=== PATIENT | male | born 1945 | race Two or more races ===

== ENCOUNTER 2023-02-28 22:15 | Inpatient (IN) | payer MEDICAID, SELFPAY ==
[~2023-02-28] VITALS: Ht 152.4 cm; Wt 53.9 kg
[~2023-02-28 22:15] MED LIST: NO HOME MEDS
[2023-02-28 23:29] LABS: BASOPHILS % (AUTO) 0.7 % (0-1); EOSINOPHILS % (AUTO) 0.1 % (0-6); HEMATOCRIT 45.2 % (42.0-52.0); HEMOGLOBIN 15.8 g/dl (14.0-17.9); LYMPHOCYTES # (AUTO) 1.1 X10'3 (1.1-4.8); LYMPHOCYTES % (AUTO) 15.2 % (21-51); MEAN CORPUSCULAR HEMOGLOBIN 31.7 PG (27.0-31.0); MEAN CORPUSCULAR VOLUME 90.5 FL (78-98); MONOCYTES # (AUTO) 0.5 X10'3 (0-0.9); MONOCYTES % (AUTO) 7.7 % (2-12); NEUTROPHILS # (AUTO) 5.4 X10'3 (1.8-7.7); NEUTROPHILS % (AUTO) 76.3 % (42-75); PLATELET COUNT 204 X10'3 (140-440); RED BLOOD COUNT 4.99 X10'6 (4.70-6.10); RED CELL DISTRIBUTION WIDTH 12.9 % (11.5-14.5); WHITE BLOOD COUNT 7.1 X10'3 (4.5-11.0)
[2023-02-28 23:38] LABS: ALANINE AMINOTRANSFERASE 50 U/L (12-78); ALBUMIN 3.4 G/DL (3.4-5.0); ALBUMIN/GLOBULIN RATIO 0.8 (1.1-1.5); ALKALINE PHOSPHATASE 76 IU/L (46-116); ANION GAP 6 (8-16); ASPARTATE AMINO TRANSFERASE 37 U/L (10-37); BILIRUBIN,TOTAL 1.5 MG/DL (0.1-1.0); BLOOD UREA NITROGEN 16 MG/DL (7-18); BUN/CREATININE RATIO 16.8 (10.0-20.0); CALCIUM 9.2 MG/DL (8.5-10.1); CHLORIDE 100 MMOL/L (99-107); CREATININE 0.95 MG/DL (0.60-1.10); GLUCOSE 151 MG/DL (70-104); POTASSIUM 3.3 MMOL/L (3.5-5.1); SODIUM 136 MMOL/L (135-145); TOTAL CARBON DIOXIDE 29.6 MMOL/L (24-32); TOTAL PROTEIN 7.7 G/DL (6.4-8.2); eCRCL 45 ML/MIN; eGFR 77 ML/MIN
[2023-02-28 23:46] LABS: PRO BRAIN NATRIURETIC PEPTIDE 1264 PG/ML (0-450)
[2023-03-01] VITALS (7 sets, daily range): BP systolic 135–162; BP diastolic 74–89; PULSE 69–83; RESP 15–16; TEMP 97.3–98.4; O2SAT 95–98
[2023-03-01 00:33] LABS: BILIRUBIN,URINE SMALL (Neg); CLARITY,URINE SLIGHTLY CLOUDY (Clear); COLOR,URINE YELLOW (Yellow); GLUCOSE, URINE NEGATIVE (Neg); KETONES,URINE NEGATIVE (Neg); LEUKOCYTE ESTERASE ,URINE NEGATIVE (Neg); NITRITES, URINE NEGATIVE (Neg); OCCULT BLOOD,URINE TRACE-INTACT (Neg); PROTEIN,URINE NEGATIVE (Neg)
[2023-03-01] MEDS ORDERED: normal saline 1000ML IV soln IVB ONE (00:35)
[2023-03-01] MEDS ORDERED: iohexol 300mg/ml 100ml inj. ONE (00:40)
[2023-03-01 00:55] LABS: UA COLLECTION TYPE CLN CATCH MIDSTREAM
[2023-03-01 00:56] LABS: MUCUS STRANDS MANY /LPF (Neg); SQUAMOUS EPITHELIAL CELL,UR FEW /LPF (FEW); WBC,URINE 0-4 /HPF (0-4)
[2023-03-01 00:57] LABS: BACTERIA,URINE 1+ /HPF (Neg); RBC,URINE 0-2 /HPF (0-2)
[2023-03-01] MEDS ORDERED: ondansetron/PF 4mg/2ml inj IV PRN (04:05)
[2023-03-01] MEDS ORDERED: magnesium hydroxide 30ml (MOM) UD suspension PO PRN (04:05)
[2023-03-01] MEDS ORDERED: acetaminophen 325mg tablet PO PRN ×2 (04:05)
[2023-03-01] MEDS ORDERED: mag hydrox/Alum hydrox/simeth 30ml oral suspension PO PRN (04:05)
[2023-03-01] MEDS ORDERED: morphine 2 MG/ML inj. syringe IV PRN ×2 (04:05)
[2023-03-01 04:44] LABS: ABG BASE EXCESS 3.1 mmol/L (-2.0-2.0); ABG OXYGEN SATURATION 95.5 % (94-97); ABG PCO2 (T) 35.2 mmHg (35.0-48.0); ABG PH (T) 7.487 (7.340-7.440); ABG PO2 (T) 79.6 mmHg (75.0-100.0); ALLEN'S TEST Modified; FHHb 4.4 % (0.0-5.0); FMetHb 0.3 % (0.0-1.5); FO2Hb 94.3 % (94-97); MODE RA; PATIENT TEMPERATURE 37.3; TOTAL HEMOGLOBIN 15.3 G/dl (14.0-17.9)
[2023-03-01 04:57] LABS: THYROID STIMULATING HORMONE 5.58 ulU/ml (0.34-4.50)
[2023-03-01] MEDS: dextrose 5%-1/2 normal saline 1,000 ML IV SCH ×2 (05:38→17:35)
[2023-03-01] MEDS ORDERED: ketorolac tromethamine 15mg/ml inj. IV PRN (06:30)
--- NOTE | 2023-03-01 06:40 | NUR ---
called ortho to give hand off report. nurse busy, will call back.
--- NOTE | 2023-03-01 07:29 | NUR ---
Patient in room ORTHO 4021. I have received report from kei in ed and had the opportunity to ask questions and assume patient care.
[2023-03-01] MEDS ORDERED: PERFLUTREN PROTEIN-A MICROSPHR (Optison) 0.22 MG/ML 3ML VIAL IV ONE (07:45)
[2023-03-01 08:44] LABS: BASOPHILS # (AUTO) 0.1 X10'3 (0-0.2); BASOPHILS % (AUTO) 1.2 % (0-1); EOSINOPHILS % (AUTO) 0.4 % (0-6); HEMATOCRIT 40.7 % (42.0-52.0); LYMPHOCYTES # (AUTO) 1.7 X10'3 (1.1-4.8); LYMPHOCYTES % (AUTO) 34.3 % (21-51); MEAN CORPUSCULAR HEMOGLOBIN 31.2 PG (27.0-31.0); MEAN CORPUSCULAR HGB CONC 34.4 g/dL (33.0-36.5); MEAN CORPUSCULAR VOLUME 90.9 FL (78-98); MEAN PLATELET VOLUME 7.9 FL (7.4-10.4); MONOCYTES # (AUTO) 0.7 X10'3 (0-0.9); MONOCYTES % (AUTO) 13.9 % (2-12); NEUTROPHILS # (AUTO) 2.5 X10'3 (1.8-7.7); NEUTROPHILS % (AUTO) 50.2 % (42-75); PLATELET COUNT 184 X10'3 (140-440); RED BLOOD COUNT 4.48 X10'6 (4.70-6.10); RED CELL DISTRIBUTION WIDTH 13.1 % (11.5-14.5)
[2023-03-01 09:13] LABS: ALANINE AMINOTRANSFERASE 49 U/L (12-78); ALBUMIN 2.9 G/DL (3.4-5.0); ALBUMIN/GLOBULIN RATIO 0.8 (1.1-1.5); ALKALINE PHOSPHATASE 65 IU/L (46-116); ANION GAP 8 (8-16); ASPARTATE AMINO TRANSFERASE 29 U/L (10-37); BILIRUBIN,TOTAL 1.3 MG/DL (0.1-1.0); BLOOD UREA NITROGEN 15 MG/DL (7-18); BUN/CREATININE RATIO 16.1 (10.0-20.0); CALCIUM 8.6 MG/DL (8.5-10.1); CHLORIDE 102 MMOL/L (99-107); CREATININE 0.93 MG/DL (0.60-1.10); GLUCOSE 105 MG/DL (70-104); POTASSIUM 3.1 MMOL/L (3.5-5.1); SODIUM 139 MMOL/L (135-145); TOTAL CARBON DIOXIDE 29.2 MMOL/L (24-32); TOTAL PROTEIN 6.7 G/DL (6.4-8.2); eCRCL 46 ML/MIN; eGFR 79 ML/MIN
[2023-03-01] MEDS: docusate sod 100mg capsule PO SCH ×2 (10:49→20:43)
[2023-03-01] MEDS: enoxaparin 40mg/0.4ml syringe SUBCUT SCH (10:50)
[2023-03-01] MEDS ORDERED: potassium Cl 40MEQ/1/2NS 520ml 520 ML IV PRN (11:35)
[2023-03-01] MEDS ORDERED: magnesium 2GM in 50ml NS 50 ML IV PRN (11:35)
[2023-03-01] MEDS ORDERED: potassium Cl 20 mEq SR tablet PO PRN ×2 (11:35)
[2023-03-01] MEDS ORDERED: magnesium Cl slow-release 64mg tablet PO PRN (11:35)
[2023-03-01] MEDS ORDERED: magnesium 4gm in 100ml NS 100 ML IV PRN (11:35)
[2023-03-01] MEDS: POTASSIUM BICARB 20meq eff tab 20 MEQ TABLET.EFF PO PRN ×3 (12:33→23:13)
[2023-03-01 13:35] LABS: MAGNESIUM 2.2 MG/DL (1.5-2.4)
[2023-03-01] MEDS ORDERED: UNABLE TO OBTAIN (16:10)
[2023-03-01] MEDS ORDERED: HYDROcodone/acetaminophen 10/325mg tab PO PRN (18:30)
[2023-03-01] MEDS ORDERED: HYDROcodone/acetaminophen 5mg/325mg tablet PO PRN (18:30)
--- NOTE | 2023-03-01 19:00 | NUR ---
Patient in room ORTHO 4021. I have received report from RICARDO Nunez and had the opportunity to ask questions and assume patient care.
--- NOTE | 2023-03-01 19:08 | NUR ---
Problems reprioritized. Patient report given, questions answered & plan of care reviewed with madahv bah.
[2023-03-01] MEDS: K and/or MAG REPLACEMENT MC SCH (20:00)
[2023-03-01] MEDS: carVEDilol 3.125mg tablet PO SCH (20:42)
[2023-03-01] MEDS ORDERED: tamsulosin 0.4mg capsule PO SCH (21:00)
[2023-03-01] MEDS ORDERED: mirtazapine 15mg tablet PO SCH (21:00)
[2023-03-02 04:27] VITALS: BP_SYST 142; BP_SYST 152; BP_SYST 162; BP_DIAS 78; BP_DIAS 80; BP_DIAS 89; PULSE 70; PULSE 76; PULSE 83
[2023-03-02 06:00] VITALS: BP 158/83; PULSE 82; RESP 16; TEMP 98.4; O2SAT 97
--- NOTE | 2023-03-02 06:30 | NUR ---
Patient in room ORTHO 4021. I have received report from Iqra Smith and had the opportunity to ask questions and assume patient care.
--- NOTE | 2023-03-02 06:36 | NUR ---
Problems reprioritized. Patient report given, questions answered & plan of care reviewed with RICARDO Beltran.
[2023-03-02 07:24] LABS: BASOPHILS # (AUTO) 0.1 X10'3 (0-0.2); BASOPHILS % (AUTO) 1.1 % (0-1); EOSINOPHILS # (AUTO) 0.1 X10'3 (0-0.9); EOSINOPHILS % (AUTO) 1.7 % (0-6); HEMATOCRIT 40.7 % (42.0-52.0); HEMOGLOBIN 14.1 g/dl (14.0-17.9); LYMPHOCYTES # (AUTO) 2.3 X10'3 (1.1-4.8); LYMPHOCYTES % (AUTO) 40.8 % (21-51); MEAN CORPUSCULAR HEMOGLOBIN 31.7 PG (27.0-31.0); MEAN CORPUSCULAR HGB CONC 34.8 g/dL (33.0-36.5); MEAN PLATELET VOLUME 8.6 FL (7.4-10.4); MONOCYTES # (AUTO) 0.6 X10'3 (0-0.9); MONOCYTES % (AUTO) 9.9 % (2-12); NEUTROPHILS # (AUTO) 2.7 X10'3 (1.8-7.7); NEUTROPHILS % (AUTO) 46.5 % (42-75); PLATELET COUNT 186 X10'3 (140-440); RED BLOOD COUNT 4.47 X10'6 (4.70-6.10); WHITE BLOOD COUNT 5.8 X10'3 (4.5-11.0)
[2023-03-02 07:54] LABS: ALANINE AMINOTRANSFERASE 54 U/L (12-78); ALBUMIN 2.7 G/DL (3.4-5.0); ALBUMIN/GLOBULIN RATIO 0.7 (1.1-1.5); ALKALINE PHOSPHATASE 62 IU/L (46-116); ANION GAP 3 (8-16); BILIRUBIN,TOTAL 1.2 MG/DL (0.1-1.0); BLOOD UREA NITROGEN 18 MG/DL (7-18); BUN/CREATININE RATIO 21.4 (10.0-20.0); CALCIUM 8.5 MG/DL (8.5-10.1); CHLORIDE 105 MMOL/L (99-107); CREATININE 0.84 MG/DL (0.60-1.10); GLUCOSE 93 MG/DL (70-104); MAGNESIUM 2.1 MG/DL (1.5-2.4); SODIUM 138 MMOL/L (135-145); TOTAL CARBON DIOXIDE 30.5 MMOL/L (24-32); TOTAL PROTEIN 6.5 G/DL (6.4-8.2); eCRCL 51 ML/MIN; eGFR 88 ML/MIN
[2023-03-02] MEDS ORDERED: losartan 25mg tablet PO SCH (08:00)
[2023-03-02] MEDS: K and/or MAG REPLACEMENT MC SCH (08:00)
[2023-03-02 08:11] LABS: ASPARTATE AMINO TRANSFERASE 46 U/L (10-37)
[2023-03-02 08:55] VITALS: BP_SYST 140; BP_SYST 145; BP_SYST 147; BP_DIAS 70; BP_DIAS 85; BP_DIAS 86; PULSE 87; PULSE 89; PULSE 98
[2023-03-02 08:56] VITALS: RESP 16; O2SAT 97
[2023-03-02] MEDS: carVEDilol 3.125mg tablet PO SCH (08:56)
[2023-03-02] MEDS: enoxaparin 40mg/0.4ml syringe SUBCUT SCH (08:57)
[2023-03-02] MEDS: docusate sod 100mg capsule PO SCH (08:57)
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
--- NOTE | 2023-03-02 10:25 | NUR ---
Patient's daughter is at bedside - utilized the [employer] conference interpreter system to communicate with patient and daughter regarding plan of care and patient's needs. Scott #[id number] with Tavia Patient's daughter Ling . Mohawk speaking only
[2023-03-02 11:00] VITALS: BP 140/70; PULSE 87; RESP 14; TEMP 97.2; O2SAT 95
[2023-03-02] MEDS ORDERED: tamsulosin capsule PO (12:03)
[2023-03-02] MEDS ORDERED: COR3.125T PO (12:03)
[2023-03-02] MEDS ORDERED: LOSA25TA41 PO (12:03)
[2023-03-02] MEDS ORDERED: MIRT-87 PO (12:03)
--- NOTE | 2023-03-02 15:38 | NUR ---
Reviewed discharge instructions with patient and patient's daughter Nan. This daughter does speak Upper Sorbian and we were able to complete the discharge review. Patient's daughter will drive the patient home as he will be staying with her. Patient was wheeled downstairs by staff to be driven home by the daughter. All of patient's belongings were gathered by the patient's daughter.
== END 2023-03-02 15:35 | disposition home or self-care (01) | DRG 115 ==
LOC: ER 22:16 → ED HOLD 03-01 04:06 → ORTHO 4S 03-01 07:17
PROVIDERS: ADMIT Internal Medicine; ATTEND Family Medicine
PROC: BW251ZZ Computerized Tomography (CT Scan) of Chest, Abdomen and Pelvis using Low Osmolar Contrast (ICD-10-PCS; principal; 2023-03-01)
DX: S09.90XA Unspecified injury of head, initial encounter (principal); I50.21 Acute systolic (congestive) heart failure; G93.41 Metabolic encephalopathy; G96.00 Cerebrospinal fluid leak, unspecified; E87.6 Hypokalemia; F43.10 Post-traumatic stress disorder, unspecified; I35.1 Nonrheumatic aortic (valve) insufficiency; N40.1 Benign prostatic hyperplasia with lower urinary tract symptoms; F32.A Depression, unspecified; Z20.822 Contact with and (suspected) exposure to COVID-19; Z87.820 Personal history of traumatic brain injury; Y93.9 Activity, unspecified; Y99.9 Unspecified external cause status; Y92.410 Unspecified street and highway as the place of occurrence of the external cause
CPT/HCPCS: 36415; 36600; 70450; 71045; 71260; 72125; 74177; 80053; 81001; 82803; 83735; 83880; 84145; 84443; 84484; 85018; 85025; 87811; 92508; 92616; 93306; 96360; 97161; 97530; 99285; G0378; J1650; J1885; J3490; J7030; J7042; J7050; Q9967